=== PATIENT | female | born 1940 | race Caucasian/White ===

== ENCOUNTER 2020-10-20 11:49 | Inpatient (IN) | payer MEDICARE ==
[~2020-10-20] VITALS: Ht 162.6 cm; Wt 60.9 kg
[~2020-10-20 11:49] MED LIST: CELEXA20 MG PO; CLARITIN10 M2 PO; COZAAR50 MG PO; PLAQUENIL200 MG PO; PROTONIX40 M1 PO; RESTASIS1 DROP OD; SULFAZINE500 MG PO; XALATAN2.5 ML OU
--- NOTE | 2020-10-20 14:12 | EKG ---
[facility] [address] [facility] [place] [address] Signed Atrial fibrillation with rapid ventricular response Left axis deviation Left bundle branch block Abnormal ECG No previous ECGs available Confirmed by RAND OWENS MD ([id number]) on 10/20/2020 2:11:47 PM Electronically Signed By: RAND OWENS MD 10/20/20 1412 PATIENT NAME: TIMOTEO RODRIGUEZ Electrocardiogram DATE OF : 38 PHYSICIAN: RAND OWENS MD REPORT #: [id number] REPORT IS CONFIDENTIAL AND NOT TO BE RELEASED WITHOUT AUTHORIZATION
--- NOTE | 2020-10-20 18:30 | NUR ---
PT SITTING UP HIGH IN BED EATING DINNER AND TALKING. HAS WHAT APPEARS TO BE ASPIRATION OF A BITE OF FOOD, FOLLOWED BY COUGHING FOR ABOUT 5-10 MINUTES, PT ABLE TO EXPECTORATE SOME THICK SPUTUM. PT DOES NOT REQUIRE INCREASE AMOUT OF O2 DURING THIS TIME TO MAINTAIN SATS WELL. PT REMAINS ALERT AND ORIENTED, ABLE TO TALK AROUND COUGHS.
--- NOTE | 2020-10-20 18:36 | NUR ---
PT HAS TWO IV SITES, BOTH FUNCTIONAL. IN BILAT AC'S. FLUSHES AND FLUIDS INFUSE EASILY. PT DENIES PAIN AT EITHER SITE.
--- NOTE | 2020-10-20 19:21 | NUR ---
PT BROUGHT UP TO THE CCU FROM ER BY THIS RN AT ABOUT 1800. PT IS ALERT AND ORIENTED X4. DILTIAZEM DRIP IN PLACE AT 5 MG/HR. PT DENIES PAIN, CHEST PAIN, AND SOB AT THIS TIME. PT REPORTS SOME SLIGHT NAUSEA.
--- NOTE | 2020-10-20 19:45 | NUR ---
REPORT RECEIVED FROM DAY SHIFT RN. IN TO CHECK ON PT, DENIES NEEDS AT THIS TIME. CARDIZEM GTT INFUSING AT 5MG/HR. HR 70'S. PT RESTING IN BED WATCHING TV.
--- NOTE | 2020-10-20 20:49 | NUR ---
RT IN DOING NEB TX.
--- NOTE | 2020-10-20 21:15 | NUR ---
IN TO DO ASSESSMENT AND HS MEDS. PT DENIES PAIN/SOB OTHER NEEDS. SPO2 ON ROOM AIR 89%, UP TO 96% WITH OXYMASK. CARDIZEM DRIP INFUSING AT 5MG/HR. HR 70-80'S, UP TO 112 WHEN AMBULATING TO BR. VOIDED, NO DIZZINESS/LIGHTHEADEDNESS THEN BACK TO BED. ALERT AND ORIENTED X4, REMINDED TO USE CALL LIGHT AND NOT TO GET UP ON HER OWN. HELPED TO POSITION IN BED, PT READY TO TRY TO SLEEP FOR THE NIGHT.
--- NOTE | 2020-10-20 23:00 | NUR ---
PT CALLS FOR CELL PHONE TO BE PLUGGED IN. ASSESSMENT DONE, NO CHANGES, PT GOING BACK TO SLEEP.
--- NOTE | 2020-10-21 01:45 | NUR ---
PT CALLS FOR WARM BLANKET, STATES SHE HAS BEEN SLEEPING WELL. CARDIZEM DRIP TURNED OFF HR HAS BEEN IN THE 70'S FOR HOURS.
--- NOTE | 2020-10-21 03:51 | NUR ---
PT CALLS TO USE BR. UP WITH SBA TO BR USING CANE, HR REMAINS STEADY WHILE UP, PT DENIES FEELING DIZZY/LIGHTHEADED. BACK TO BED, ASSESSMENT DONE. PT DENIES FEELING SOB OR COUGHING. LUNGS CLEAR AND SOMEWHAT DIM IN BASES. SPO2 89% ON ROOM AIR WHILE LYING IN BED, OXYGEN APPLIED OXYMASK 2L AND SPO2 UP TO 95%. PT DENIES PAIN OR OTHER NEEDS, STATES SHE HAS BEEN SLEEPING WELL.
--- NOTE | 2020-10-21 10:26 | NUR ---
PATIENT ASSESSMENT COMPLETED, LABS DRAWN AND MORNING MEDS GIVEN. PT. AMBULATED WITH CANE TO THE BEDSIDE COMMODE ON FULL CHARGE BOOKKEEPER. TOLERATED WELL. PT. ON 3.5L ON OXYMASK. STATES SHE PREFERS MASK. IV SITES FLUSH WELL. PT. ALERT AND ORIENT. LEFT RESTING IN BED WITH CALL LIGHT IN REACH.
--- NOTE | 2020-10-21 11:35 | NUR ---
PATIENT ASSISTED WITH BEDBATH AND ORAL CARE. PT. MENTIONED SHE HAD A FALL TWO WEEKS AGO, BUT WAS NOT HURT. PT. PROVIDED WITH EDUCATION ABOUT AFIB AND SAFETY WITH AMBULATING. ASSESSMENT COMPLETED. TEMP. 97.8. LUNGS DIM IN BASES. PT. DENIES PAIN. HR IS 76 WHILE RESTING IN BED. ON 2L OF O2 NC. PT. LEFT RESTING IN BED WITH CALL LIGHT IN REACH.
--- NOTE | 2020-10-21 13:45 | NUR ---
PATIENT WAS CRYING AND ON THE PHONE WITH HER SON. PT. STATED THAT HER SON WANTED HER TO TELL DR. OWENS THAT SHE IS A DAILY DRINKER OF 3 BEERS PER DAY. HER LAST DRINK WAS ON FRIDAY. PT. WAS TREMULOUS IN ARMS. PT. ALSO STATED SHE TAKES EYE DROPS DAILY FOR GLAUCOMA AND FLONASE FOR NASAL DRIP. DR. OWENS NOTIFIED AND ORDERED BEER WITH HER DIET. PT. MAY HAVE FLONASE BROUGHT FROM HOME.
[2020-10-21] MEDS ORDERED: PANTOPRAZOLE SO40 MG PO (14:15)
--- NOTE | 2020-10-21 15:04 | NUR ---
REMDESIVIR STARTED. PT. AMBULATED WITH CANE TO THE BATHROOM. VOIDED 300ML CLEAR YELLOW URINE. PT. LEFT RESTING IN BED WITH CALL LIGHT IN REACH.
--- NOTE | 2020-10-21 16:00 | NUR ---
PATIENT ASSESSMENT COMPLETED. CRACKLES HEARD IN THE LLL. PT. ON 1L NC. PT. FINISHED BEER. DENIES PAIN AND STATES THAT SHE IS FEELING BETTER AND IS NOT SHAKY. PT. ORIENTED AND APPROPRIATE. IV SITES WNL. PT. LEFT RESTING IN BED WITH CALL LIGHT IN REACH.
--- NOTE | 2020-10-21 17:48 | NUR ---
PATIENT ASSISTED WITH REPOSITIONING TO THE SIDE OF THE BED. BROUGHT DINNER AT BEDSIDE. PT. SPEAKING WITH SON BY PHONE. LEFT EATING DINNER WITH CALL LIGHT IN REACH.
--- NOTE | 2020-10-21 20:30 | NUR ---
RT IN ROOM TO GIVE NEB TX.
--- NOTE | 2020-10-21 21:00 | NUR ---
PT CALLS WITH CONCERN THAT HER HR IS INCREASING AND SHE FEELS JITTERY. HS MEDS GIVEN, RESTING HR 100'S. CONT TO MONITOR.
--- NOTE | 2020-10-21 21:47 | NUR ---
AWAKE IN BED WATCHING RV, DENIES NEEDS. RESTING HR AT THIS TIME 118.
--- NOTE | 2020-10-21 23:20 | NUR ---
INFORMED DR OWENS OF PT'S HR 90'S TO 100'S. ORDER GIVEN FOR METOPROLOL.
--- NOTE | 2020-10-21 23:45 | NUR ---
IN TO GIVE PT ADDITIONAL 12.5MG PO METORPROLOL. ASSESSMENT DONE. PT STATES "IM GETTING PRETTY SORE FROM COUGHING". CURRENTLY ON 1L/NC WITH SPO2 95%. LUNGS SOUND CLEAR NO REQUESTS
--- NOTE | 2020-10-22 00:37 | NUR ---
PT CALLS TO USE BR, HR UP TO 115 WHILE UP. C/O 01/03 HEADACHE TYLENOL GIVEN.
--- NOTE | 2020-10-22 03:30 | NUR ---
PT HAD SPO2 86% WHILE SLEEPING, 1L OXYGEN PLACED AND SATS UP TO 92%. ASSESSMENT DONE.
--- NOTE | 2020-10-22 05:55 | NUR ---
IN TO DRAW LABS, PT DENIES NEEDS.
--- NOTE | 2020-10-22 06:59 | NUR ---
UP TO BR TO VOID 300ML, BACK TO BED. HR 90'S. OXYGEN 1L/NC SPO2 97%.
--- NOTE | 2020-10-22 08:20 | NUR ---
REPORT RECEIVED FROM NIGHT RN AND PATIENT CARE RESUMED. PT. DENIES PAIN AND STATED SHE DID NOT SLEEP WELL LAST NIGHT. PT. GIVEN MORNING MEDS, LAB DRAWN, AND PT. ASSESSED. LEFT IV SITE SLUGGISH TO FLUSH, BUT NO SIGNS OF INFILTRATION OR PAIN. CRACKLES HEARD BILAT. IN LUNG BASES AND WHEEZING IN THE RUL. PATIENT LEFT RESTING IN BED EATING BREAKFAST WITH CALL LIGHT IN REACH.
--- NOTE | 2020-10-22 09:20 | NUR ---
PATIENT ASSISTED TO THE BATHROOM TO VOID. AMBULATED INDEPENDENTLY WITH CANE AND TOLERATED WELL. UNMEASURED VOID. PT. GIVEN MAGNESIUM. PT. ASSISTED WITH REPOSITIONING AND LEFT RESTING IN BED WITH CALL LIGHT NEARBY.
--- NOTE | 2020-10-22 12:11 | NUR ---
PATIENT ASSESSMENT COMPLETED. PT. SLEEPING AND STATED SHE IS NOT HUNGRY FOR LUNCH AND JUST NEEDS TO REST. TEMP. 99.2 AND PT. DIAPHORETIC. REMOVED BLANKETS AND WILL CONTINUE TO MONITOR TEMP. CRACKLES HEARD IN LLL OF LUNGS. PT. ORIENTED. IV SITES WNL AND FLUSHED WELL. DISCUSSED PLAN TO CHANGE BEDDING AND BATH IN THE AFTERNOON. PT. LEFT RESTING IN BED WITH CALL LIGHT IN REACH.
--- NOTE | 2020-10-22 13:16 | NUR ---
PATIENT TRANSFERRED VIA SIGN HANGER TO [facility] ROOM 117 WITH ALL BELONGINGS. REPORT GIVEN TO BARTOLO RAMIREZ AND ANSWERED ALL QUESTIONS.
--- NOTE | 2020-10-22 18:47 | NUR ---
Lab draw done per orders. Pt in bed, table and call light within reach. O2 sat 96% on 1L NC.
--- NOTE | 2020-10-22 19:25 | NUR ---
RECEIVED REPORT FROM BARTOLO RAMIREZ. pt USING BSC. CALL LIGHT WITHIN REACH.
--- NOTE | 2020-10-22 19:52 | NUR ---
CALL LIGHT ON. pt REPORTED "I HAD A LITTLE ACCIDENT ON THE FLOOR AND WET MY UNDERWEAR." PROVIDED FRESH DEPENDS. NO OTHER REQUESTS AT THIS TIME. CALL LIGHT WITHIN REACH.
--- NOTE | 2020-10-22 20:47 | NUR ---
VERBAL REPORT RECEIVED FROM BARTOLO SHAFFER AT THIS TIME, THIS RN TO RESUME CARE FOR pt. pt AWAKE AND RESTING IN BED, 1LNC IN PLACE, O2 SAT IN MID TO UPPER 90'S, TELE#[address], HR WNL. NO NEEDS VERBALIZED BY pt AT THIS TIME. CALL LIGHT IN REACH.
--- NOTE | 2020-10-22 22:30 | NUR ---
ASSESSMENT COMPLETE, SCHEDULED MEDS GIVEN (SEE EMAR). VSS, 1LNC IN PLACE, 02 SAT WNL IN MID TO UPPER 90'S. TELE#[address], HR WNL. pt DENIES PAIN, NAUSEA, SOB. IV SITES X2 WNL, FLUSHES EASILY. pt ASSISTED WITH BED ROUTINE. NEW GOWN GIVEN, HAIR AND TEETH BRUSHED. pt NOW RESTING IN BED, DENIES FURTHER NEEDS, CALL LIGHT IN REACH. FRESH WATER PROVIDED ALONG WITH WARM BLANKET. CALL LIGHT IN REACH.
--- NOTE | 2020-10-22 23:48 | NUR ---
CALL LIGHT ON. pt REQUESTED ASSISTANCE WRAPPING HER IV. DRESSING INTACT. LIGHTLY WRAPPED FOR pt COMFORT. EMPTIED URINE. NO OTHER NEEDS AT THIS TIME. CALL LIGHT WITHIN REACH.
--- NOTE | 2020-10-23 01:04 | NUR ---
ROUNDING ON pt, RN DEENA IN ROOM ASSISTING WITH LIGHTS. NO ADDITIONAL NEEDS VERBALIZED, CALL LIGHT IN REACH.
--- NOTE | 2020-10-23 02:30 | NUR ---
IN ROOM TO REPLACE TELE BATTERY, ASSESSMENT COMPLETE. UNABLE TO AUSCULTATE HEART, LUNGS, OR BT D/T PAPR. pt AWOKE TO VOICE, DENIES NEEDS OR CONCERNS. pt DENIES PAIN AND NAUSEA. 1LNC IN PLACE, TELE#[address], HR WNL. CALL LIGHT IN REACH.
--- NOTE | 2020-10-23 06:40 | NUR ---
LAB DRAW COLLECTED AND SENT TO LAB. pt UP TO BSC AND BACK TO BED, STEADY ON FEET. 1LNC IN PLACE, NO DISTRESS NOTED. CALL LIGHT IN REACH AND FRESH WATER AT BEDSIDE.
--- NOTE | 2020-10-23 07:25 | NUR ---
PT RESTING SOUNDLY AT TIME OF SHIFT EXCHANGE. SATS 96%
--- NOTE | 2020-10-23 10:04 | NUR ---
PT HAD AN ECHO CARDIOGRAM EARLIER. SITTING UP IN BED EATING BREAKFAST AT THIS TIME, DENIES PAIN, SOB, OR OTHER DISCOMFORTS. PT ENCOURAGED TO USE I/S FREQUENTLY THIS SHIFT SHE VERBALIZES UNDERSTANDING. DENIES REQUESTS
--- NOTE | 2020-10-23 12:25 | NUR ---
DR DOHERTY IN TO SEE PT DISCUSSES PLAN GOING FORWARD. ALL QUESTIONS ANSWERED
--- NOTE | 2020-10-23 14:41 | NUR ---
PT TRIED ON RA SATS ARE 95-97 THEN DIP WITH ANY ACTIVITY OR TALKING. RETURNED TO 1 L 02. PT UP TO BSC THEN RETURNS TO BED NO INCREASED LABOR OF BREATHING OR C/O SOB. SITTING UPRIGHT IN BED AT THIS TIME DENIES NEED OF ANYTHING. FRESH H20 AT BEDSIDE PT TAKING SIPS ONLY. SHE IS COOPERATIVE AND ACTIVELY TRYING TO LIMIT FLUIDS VERBALIZING AND DEMONSTRATING UNDERSTANDING.
--- NOTE | 2020-10-23 15:00 | NUR ---
Attempted to call pt for CM assessment as she is + for covid. Unable to contact by phone, will try tomorrow.
--- NOTE | 2020-10-23 18:19 | NUR ---
PT SITTING UP IN HER BED EATING EVENING MEAL WATCHING TV. SATS MID 90'S. SHE REMOVES HER 02 EARLIER TO TOILET SATS DIP TO 80'S. PT ENCOURAGED TO CALL FOR ASSIST IF NEEDED BUT NOT TO TAKE 02 OFF, UNDERSTANDING VERBALIZED. 02 REPLACED SHE RECOVERS QUICKLY DENIES SOB OR DISCOMFORTS
--- NOTE | 2020-10-23 19:10 | NUR ---
REPORT RECEIVED FROM JOSE MCFARLAND. PT SPO2 AT 96% CURRENTLY VIA TELE #6. CALL LIGHT IN REACH, NO APPARENT NEEDS AT THIS TIME, WILL CONTINUE PLAN OF CARE.
--- NOTE | 2020-10-23 21:06 | NUR ---
SCHEDULED MEDICATIONS ADMINISTERED, ASSESSMENT, VITALS AND I/O'S COMPLETE. PT ON 2L NC, SPO2 95%. PT REPORTS NO SOB, NO DISCOMFORT AT THIS TIME. LUNGS COARSE IN BASES, OTHERWISE CLEAR, HRR, BOWEL TONES ACTIVE. PT INDEPENDENT IN THE ROOM, ABLE TO USE BSC, SALINE LOCKED. PT STATES N/T IN BLE BASELINE. WATER PROVIDED W REGARD TO FLUID RESTRICTION. CALL LIGHT IN REACH, NO OTHER NEEDS AT THIS TIME.
--- NOTE | 2020-10-23 23:05 | NUR ---
CALL LIGHT ANSWERED, PT ASSISTED WITH LIGHTS AND EMPTYING OF BSC. ON 2L NC, SPO2 96%, NO OTHER REQUESTS AT THIS TIME. WILL CONTINUE TO MONITOR
--- NOTE | 2020-10-24 01:12 | NUR ---
PT RESTING IN BED WITH EYES CLOSED. RR EVEN AND UNLABORED, ON 1L O2, SPO2 AT 96%. CALL LIGHT IN REACH, NO APPARENT NEEDS OR DISTRESS. WILL CONTINUE TO MONITOR.
--- NOTE | 2020-10-24 03:45 | NUR ---
IN ROOM TO CHANGE TELE BATTERY. PT REPORTS NO NEEDS AT THIS TIME, ON 1L O2, AT 92% SPO2. CALL LIGHT IN REACH, WILL CONTINUE TO MONITOR
--- NOTE | 2020-10-24 06:04 | NUR ---
IN pt ROOM FOR LAB DRAW. pt TOLERATED WELL. CALL LIGHT AND PERSONAL SUPPLIES IN REACH.
--- NOTE | 2020-10-24 06:50 | NUR ---
LABS DRAWN, PRN TYLENOL ADMINISTERED, ASSESSMENT COMPLETE. VITALS AND I/O'S COMPLETE, PT RESTING WITH NO NEEDS AT THIS TIME. WATER REFRESHED. CALL LIGHT IN REACH, WILL CONTINUE TO MONITOR.
--- NOTE | 2020-10-24 07:23 | NUR ---
RECEIVED REPORT FROM LUIS MCFARLAND. PT APPEARS TO RESTING COMFORTABLY WITH RESITRATIONS NOTED.
--- NOTE | 2020-10-24 13:32 | NUR ---
Spoke with Luz by phone. She states she is doing well, up in her room. Plans on dc to home when finished with Remdesivir and cleared by . Pt lives alone, but her children live in the same area at [place]. They see or check on her daily. She does state they have been sick and are getting tested for covid, she believe they infected her. She states she has several friends and neighbors who can assist her.
--- NOTE | 2020-10-24 17:30 | NUR ---
PTS RHYTHEM REMAINS IN A-FIB WITH NOW INCREASED FREQUENCY OF AXIS CHANGES AND WIDENED QRS COMPLEXES OF A BUNDLE BRANCH BLOCK. PTS RN, RUBEN, CALLED AND UPDATED AND STATES SHE WILL CHECK ON PT.
--- NOTE | 2020-10-24 19:01 | NUR ---
PATIENT UP TO BSC AND BACK TO BED, IND. JIMY CARE DONE. CALL LIGHT IN REACH. NO FURTHER NEEDS AT THIS TIME.
--- NOTE | 2020-10-24 19:20 | NUR ---
RECEIVED REPORT FROM BARTOLO MIRANDA. pt RESTING IN BED. CALL LIGHT WITHIN REACH.
--- NOTE | 2020-10-24 21:00 | NUR ---
IN TO DO ASSESSMENT AND MEDICATIONS. pt UP TO VOID, SMALL BM NOTED. pt INDEPENDENT IN ROOM. PM CARES DONE. pt ASKED QUESTIONS ABOUT FLUID RESTRICTION, PROVIDED VERBAL EDUCATION AND HANDOUTS. DISCUSSED NEEDS. pt WOULD LIKE HER DAUGHTER TO BE INVOLVED IN CARE CONFERENCE WILL DISCUSS WITH CHARGE NURSE. ASSESSMENT DONE. MEDICATIONS GIVEN (SEE MAR). pt RESTING IN BED. CALL LIGHT WITHIN REACH.
--- NOTE | 2020-10-24 23:23 | NUR ---
CALL LIGHT ON. pt REQUESTED ASSISTANCE WITH LIGHTS. RESTING IN BED. NO FURTHER REQUESTS AT THIS TIME. CALL LIGHT WITHIN REACH.
--- NOTE | 2020-10-25 01:40 | NUR ---
ROUNDED ON pt. RESTING IN BED WITH EYES CLOSED, O2 SAT 91% ON ROOM AIR. CALL LIGHT WITHIN REACH.
--- NOTE | 2020-10-25 03:30 | NUR ---
ROUNDED ON pt. RESTING IN BED WITH EYES CLOSED, RESPIRATIONS REGULAR. CALL LIGHT WLITHIN REACH.
--- NOTE | 2020-10-25 05:26 | NUR ---
IN TO DO ASSESSMENT. pt REPORTED "I SLEPT WELL, I FEEL GOOD THIS MORNING" NOTED HACKING COUGH. ASSESSMENT DONE. VITALS AND I&O RECORDED. TOOK BREAKFAST ORDER. PROVIDED WARM BLANKET. NO FURTHER REQUESTS AT THIS TIME. CALL LIGHT WITHIN REACH.
--- NOTE | 2020-10-25 07:34 | NUR ---
THIS RN RECIEVED REPORT FROM DEENA MCFARLAND. PT APPEARS TO BE RESTING AND PER THE TELE MONOITOR BOARD PT IS SATING IN THE MID 90'S ON ROOM AIR WITH A GOOD WAVE FORM.
--- NOTE | 2020-10-25 09:46 | NUR ---
THIS RN IN PTS ROOM AT THIS TIME. PT STATES THAT SHE IS FEELING GOOD TODAY. PT ALERT AND ORIENTED. PT STATES REMEMBERING EDUCATION THAT DEENA RN HAD PROVIDED PT. THIS RN REINFORCED EDUCATION. PTS ONLY CONCERN THIS AM IS THAT SHE DOESN'T KNOW WHEN THE HORSENESS IN HER VOICE WILL GO AWAY.
--- NOTE | 2020-10-25 10:15 | NUR ---
THIS RN CONTINUED IN PTS ROOM AND DISCUSSED WITH PT ABOUT EDUCATION IN REGARDS TO HEART FAILURE AND AFIB. PT STATED UNDERSTANDING. THIS RN ALSO DISCUSSED WITH PT ABOUT WHEN SHE DRINKS HER BEERS AT HOME THAT THE FLUID ACCOUNT TOWARDS HER FLUID RESTIRION AND TALKED THROUGH PTS PLANS OF HOS SHE CAN STILL DRINK A BEER AND WATER WHILE MAINTAINING WITHIN HER FLUID RESTRICTION
--- NOTE | 2020-10-25 13:00 | NUR ---
Spoke with Luz, she plans on dc today. States she is need of clothing and her keys. Spoke with beeswax bleacher and trace to pts room, stock supervisor will get pt scrub pants to wear home. Pt has her robe.
--- NOTE | 2020-10-25 13:37 | NUR ---
Certified Heart Failure Nurse Notes: Diagnosis: Atrial fibrillation and CHF. Covid. Automation Technician : not at this time PCP: [facility] Echocardiogram : EF 40% with severe dilated RV BNP on admit. Oct 24 BNP 788 Cr 0.46 Admit Weight 134lb Social support system: Reports daughter and son in law liver nearby. They can assist as needed but currently are on home quarantine. Weight monitoring: Scale present in home. Patient was not aware of weight gain monitoring and she agrees to begin Discussed how to weigh daily/ when to notify PCP Symptom management: Addressed monitoring and reporting changes in weight or symptoms utilizing Zones form. Transportation mode: Usually drives herself to appointments. Does not drive after dark. Diet: Usual meals include fresh vegetables and fruits. Recently has cut out beef and eats chicken, fish, and beans. Patient encouraged to follow low sodium diet. Given rationale and ideas for flavoring foods. Reports she does not eat a lot of processed foods. Does enjoy cheese and uses a lemon pepper salt mix. Portion control urged for these. She is a little unsure of this since at one time she was told her blood sodium was low- I will discuss with patient's RN Carolyn. Luz has been drinking a lot of water partially because of her diverticulitis history. Usual physical activity: States exercise use to be her norm but she has become sedentary as she aged. Discussed benefits of slow progress cardio exercise. Patient does not currently qualify for cardiac rehab. Medication routine: She reports taking a few medications twice a day at home without problems. She does not use 7 day pill assistant terminal manager. She agrees to try, I will leave a 7 day BID one for her at the nurses station. Advanced directive: Not discussed at this initial visit Today's visit was done via telephone with patient. 22 minutes of time with patient. Recommendations prior to discharge: Document ambulation oxygen saturations prior to discharge Absence of orthostatic hypotension. Discharge weight less than admit weight. Discharge BNP less than admit (as per [facility] Heart Failure DC Bundle) Barriers to self-care include: Knowledge deficit of new diagnosis HF. Alcohol intake. Covid restrictions. Follow-up plans: F/U call post discharge. Patient invited to come in later for complementary heart failure education. Will need further education on label reading. Needs counseled on minimizing/avoiding use of NSAIDs Teaching materials given today: [facility] contact information, Low Sodium Shopping list. 7 day pill box.
[2020-10-25] MEDS ORDERED: METOPROLOL SUCC50 MG PO (14:06)
[2020-10-25] MEDS ORDERED: ELIQUIS2.5 MG PO (14:07)
[2020-10-25] MEDS ORDERED: BUMETANIDE0.5 MG PO (14:07)
[2020-10-25] MEDS ORDERED: POTASSIUM CHLO20 ME1 PO (14:08)
[2020-10-25] MEDS ORDERED: COZAAR25 MG PO (14:09)
--- NOTE | 2020-10-25 14:10 | NUR ---
Notified by RN, pt is in need of transport home. Called taxi and notified pt is covid +. They request I call [facility] transport [phone]. Called and scheduled ride home for 3:15. They will warehouse order picker at [facility]. Carolyn Mendoza updated.
== END 2020-10-25 15:25 | disposition home or self-care (01) | DRG 177 ==
LOC: ED 11:49 → CCU 15:02 → MS 10-22 14:00
PROVIDERS: ADMIT Internal Medicine; ATTEND Internal Medicine
PROC: XW033E5 Introduction of Remdesivir Anti-infective into Peripheral Vein, Percutaneous Approach, New Technology Group 5 (ICD-10-PCS; principal; 2020-10-20)
DX: U07.1 COVID-19 (principal); J96.01 Acute respiratory failure with hypoxia; J12.89 Other viral pneumonia; I50.31 Acute diastolic (congestive) heart failure; J44.0 Chronic obstructive pulmonary disease with (acute) lower respiratory infection; J44.1 Chronic obstructive pulmonary disease with (acute) exacerbation; C85.10 Unspecified B-cell lymphoma, unspecified site; E87.1 Hypo-osmolality and hyponatremia; I48.91 Unspecified atrial fibrillation; I11.0 Hypertensive heart disease with heart failure; M06.9 Rheumatoid arthritis, unspecified; F41.9 Anxiety disorder, unspecified; Z79.899 Other long term (current) drug therapy; Z87.11 Personal history of peptic ulcer disease; Z88.0 Allergy status to penicillin; Z88.5 Allergy status to narcotic agent
CPT/HCPCS: 71045; 71260; 80048; 80053; 82803; 83735; 83880; 84484; 85025; 93005; 93010; 93306; 94640; 94667; 94668; 94760; 96374; 96375; 96376; 97162; 99285-25; C9803; J1100; J1650; J1940; J2405; J2930; J3475; J7050; J8540; Q9967; U0003

== ENCOUNTER 2021-07-18 18:37 | Emergency (ER) | payer MEDICARE ==
[~2021-07-18] VITALS: Ht 162.6 cm; Wt 58.5 kg
[~2021-07-18 18:37] MED LIST changes: +BUMETANIDE0.5 MG PO; +COZAAR25 MG PO; +ELIQUIS2.5 MG PO; +METOPROLOL SUCC50 MG PO; +PANTOPRAZOLE SO40 MG PO; +POTASSIUM CHLO20 ME1 PO
[2021-07-18] MEDS ORDERED: JANTOVEN2.5 MG (19:17)
== END 2021-07-18 21:56 | disposition home or self-care (01) ==
LOC: ED 18:37
DX: S90.211A Contusion of right great toe with damage to nail, initial encounter (principal); X58.XXXA Exposure to other specified factors, initial encounter; J44.9 Chronic obstructive pulmonary disease, unspecified; J18.9 Pneumonia, unspecified organism; Z87.891 Personal history of nicotine dependence; Z88.0 Allergy status to penicillin; Z88.5 Allergy status to narcotic agent; Z88.2 Allergy status to sulfonamides; Z79.899 Other long term (current) drug therapy; Z79.01 Long term (current) use of anticoagulants
CPT/HCPCS: 73660; 99283

== ENCOUNTER 2021-08-28 12:33 | Emergency (ER) | payer MEDICARE ==
[~2021-08-28] VITALS: Ht 162.6 cm; Wt 56.7 kg
[~2021-08-28 12:33] MED LIST changes: +JANTOVEN2.5 MG PO; +NYSTATIN100000 UN1 PO; +TRUXIMA10 MG/1 ML IV
== END 2021-08-28 18:12 | disposition home or self-care (01) ==
LOC: ED 12:33
DX: K91.840 Postprocedural hemorrhage of a digestive system organ or structure following a digestive system procedure (principal); J44.9 Chronic obstructive pulmonary disease, unspecified; Z87.891 Personal history of nicotine dependence; Z88.0 Allergy status to penicillin; Z88.5 Allergy status to narcotic agent; Z88.8 Allergy status to other drugs, medicaments and biological substances; Z79.899 Other long term (current) drug therapy; Z79.01 Long term (current) use of anticoagulants
CPT/HCPCS: 85025; 85610; 99283

== ENCOUNTER 2021-11-13 09:35 | Emergency (ER) | payer MEDICARE ==
[~2021-11-13] VITALS: Ht 162.6 cm; Wt 59.9 kg
[~2021-11-13 09:35] MED LIST changes: +CITRACAL-VIT D1 EAC2 PO; +OSTERA TABLET1 EACH PO
[2021-11-13] MEDS ORDERED: K-TAB10 MEQ PO (14:53)
[2021-11-13] MEDS ORDERED: LASIX20 MG PO (14:53)
[2021-11-13] MEDS ORDERED: HYDROCHLOROTH12.5 MG PO (15:31)
--- NOTE | 2021-11-15 11:26 | EKG ---
[facility] [address] [facility] [place] [address] Signed Atrial fibrillation with premature ventricular or aberrantly conducted complexes Nonspecific intraventricular block Possible Anterolateral infarct , age undetermined Abnormal ECG When compared with ECG of 16-OCT-2021 08:55, Atrial fibrillation has replaced Atrial flutter Questionable change in QRS axis QT has lengthened Confirmed by RAND OWENS MD ([id number]) on 11/15/2021 11:25:58 AM Electronically Signed By: RAND OWENS MD 11/15/21 1126 PATIENT NAME: TIMOTEO RODRIGUEZ Electrocardiogram DATE OF : 38 PHYSICIAN: RAND OWENS MD REPORT #: [id number] REPORT IS CONFIDENTIAL AND NOT TO BE RELEASED WITHOUT AUTHORIZATION
== END 2021-11-13 15:55 | disposition home or self-care (01) ==
LOC: ED 09:35
DX: U07.1 COVID-19 (principal); J90 Pleural effusion, not elsewhere classified; J44.9 Chronic obstructive pulmonary disease, unspecified; Z87.891 Personal history of nicotine dependence; Z88.0 Allergy status to penicillin; Z88.5 Allergy status to narcotic agent; Z88.8 Allergy status to other drugs, medicaments and biological substances; Z79.899 Other long term (current) drug therapy; Z79.01 Long term (current) use of anticoagulants
CPT/HCPCS: 71045; 80053; 83880; 85025; 86850; 86900; 86901; 93005; 93010; 99284-25; C9803; U0003

== ENCOUNTER 2021-12-17 14:11 | Emergency (ER) | payer MEDICARE ==
[~2021-12-17] VITALS: Ht 162.6 cm; Wt 57.6 kg
[~2021-12-17 14:11] MED LIST changes: +HYDROCHLOROTH12.5 MG PO; +K-TAB10 MEQ PO; +LASIX20 MG PO
--- OUTSIDE RECORDS SUMMARY | 2021-12-17 14:18 | XMS ---
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 Caren has no Care Guidelines for this patient. Tori VISIT COUNT (12 MO.) 4 CARMEL Sandoval TOTAL 4 NOTE: Visits indicate total known visits. ED/C VISIT TRACKING (12 MO.) 12/17/2021 14:12 [facility] [place] TYPE: Emergency COMPLAINT: - FALL, HEAD WOUND 11/13/2021 09:37 [facility] [place] TYPE: Emergency COMPLAINT: - COUGH, SWELLING FEET, DIARRHEA DIAGNOSES: - Allergy status to other drugs, medicaments and biological substances - Other fecal abnormalities - Other detention (current) drug therapy - Pleural effusion, not elsewhere classified - Chronic obstructive pulmonary disease, unspecified - Personal history of nicotine dependence - Allergy status to narcotic agent - Allergy status to penicillin - account service representative (current) use of anticoagulants - COVID-19 08/28/2021 12:34 [facility] [place] TYPE: Emergency COMPLAINT: - DENTAL ISSUE DIAGNOSES: - Postprocedural hemorrhage of a digestive system organ or structure following a digestive system procedure - Other detention (current) drug therapy - Personal history of nicotine dependence - Allergy status to other drugs, medicaments and biological substances - long-term (current) use of anticoagulants - Other specified disorders of teeth and supporting structures - Allergy status to narcotic agent - Allergy status to penicillin - Chronic obstructive pulmonary disease, unspecified 07/18/2021 18:38 [facility] [place] TYPE: Emergency COMPLAINT: - TOE PAIN/NON INJURY DIAGNOSES: - Contusion of right great toe with damage to nail, initial encounter - Chronic obstructive pulmonary disease, unspecified - long-term (current) use of anticoagulants - Allergy status to sulfonamides - Allergy status to narcotic agent - Personal history of nicotine dependence - Other detention (current) drug therapy - Pneumonia, unspecified organism - Allergy status to penicillin - Exposure to other specified factors, initial encounter - Pain in right toe(s) INPATIENT VISIT TRACKING (12 MO.) No inpatient visits to display in this time frame [email or web address]
== END 2021-12-17 21:07 | disposition home or self-care (01) ==
LOC: ED 14:11
DX: S61.217A Laceration without foreign body of left little finger without damage to nail, initial encounter (principal); S01.81XA Laceration without foreign body of other part of head, initial encounter; R91.8 Other nonspecific abnormal finding of lung field; W01.198A Fall on same level from slipping, tripping and stumbling with subsequent striking against other object, initial encounter; I48.91 Unspecified atrial fibrillation; M06.9 Rheumatoid arthritis, unspecified; J44.9 Chronic obstructive pulmonary disease, unspecified; Z87.891 Personal history of nicotine dependence; Z88.0 Allergy status to penicillin; Z88.5 Allergy status to narcotic agent; Z88.8 Allergy status to other drugs, medicaments and biological substances; Z79.899 Other long term (current) drug therapy
CPT/HCPCS: 12011; 36415; 70450; 72125; 72170; 73560; 80053; 80503; 85025; 99284-25

== ENCOUNTER 2022-01-12 19:18 | Emergency (ER) | payer OTHER, MEDICARE ==
[~2022-01-12] VITALS: Ht 162.6 cm; Wt 64.9 kg
--- OUTSIDE RECORDS SUMMARY | 2022-01-12 19:24 | XMS ---
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 Caren has no Care Guidelines for this patient. [facility] NOTE: Visits indicate total known visits. ED/C VISIT TRACKING (12 MO.) [facility] 19[facility] [place] [facility]: Emergency COMPLAINT: - HEAD INJURY,LEGS ARE OOZING,BOTH FEET INJURED 12/17/2021 14:12 [facility] TYPE: Emergency COMPLAINT: - FALL, HEAD WOUND DIAGNOSES: - Fall on same level from slipping, tripping and stumbling with subsequent striking against other object, initial encounter - Laceration without foreign body of left little finger without damage to nail, initial encounter - Allergy status to other drugs, medicaments and biological substances - Chronic obstructive pulmonary disease, unspecified - Laceration without foreign body of other part of head, initial encounter - Allergy status to narcotic agent - Other nonspecific abnormal finding of lung field - Rheumatoid arthritis, unspecified - Unspecified atrial fibrillation - Allergy status to penicillin - Personal history of nicotine dependence - Other penitentiary (current) drug therapy 11/13/2021 09:37 [facility] [place] TYPE: Emergency COMPLAINT: - COUGH, SWELLING FEET, DIARRHEA DIAGNOSES: - Allergy status to other drugs, medicaments and biological substances - Other fecal abnormalities - Other termite treater (current) drug therapy - Pleural effusion, not elsewhere classified - Chronic obstructive pulmonary disease, unspecified - Personal history of nicotine dependence - Allergy status to narcotic agent - Allergy status to penicillin - residential (current) use of anticoagulants - COVID-19 08/28/2021 12:34 [facility] [place] TYPE: Emergency COMPLAINT: - DENTAL ISSUE DIAGNOSES: - Postprocedural hemorrhage of a digestive system organ or structure following a digestive system procedure - Other termite treater (current) drug therapy - Personal history of nicotine dependence - Allergy status to other drugs, medicaments and biological substances - intermediate school teacher (current) use of anticoagulants - Other specified disorders of teeth and supporting structures - Allergy status to narcotic agent - Allergy status to penicillin - Chronic obstructive pulmonary disease, unspecified 07/18/2021 18:38 [facility] TYPE: Emergency COMPLAINT: - TOE PAIN/NON INJURY DIAGNOSES: - Contusion of right great toe with damage to nail, initial encounter - Chronic obstructive pulmonary disease, unspecified - residential (current) use of anticoagulants - Allergy status to sulfonamides - Allergy status to narcotic agent - Personal history of nicotine dependence - Other termite treater (current) drug therapy - Pneumonia, unspecified organism - Allergy status to penicillin - Exposure to other specified factors, initial encounter - Pain in right toe(s) INPATIENT VISIT TRACKING (12 MO.) No inpatient visits to display in this time frame [email or web address]
[2022-01-12] MEDS ORDERED: BACITRACIN3.5 GM OD (22:03)
== END 2022-01-12 22:40 | disposition home or self-care (01) ==
LOC: ED 19:18
DX: S80.12XA Contusion of left lower leg, initial encounter (principal); S80.11XA Contusion of right lower leg, initial encounter; S00.81XA Abrasion of other part of head, initial encounter; I50.9 Heart failure, unspecified; I83.009 Varicose veins of unspecified lower extremity with ulcer of unspecified site; J44.9 Chronic obstructive pulmonary disease, unspecified; Z87.891 Personal history of nicotine dependence; Z88.0 Allergy status to penicillin; Z88.5 Allergy status to narcotic agent; Z88.8 Allergy status to other drugs, medicaments and biological substances; Z79.899 Other long term (current) drug therapy; W19.XXXA Unspecified fall, initial encounter
CPT/HCPCS: 36415; 70450; 80053; 80503; 83880; 85025; 93925; 99284-25

== ENCOUNTER 2024-08-06 09:47 | Emergency (ER) | payer MEDICARE ==
[~2024-08-06] VITALS: Ht 162.6 cm; Wt 55.3 kg
[~2024-08-06 09:47] MED LIST changes: +BACITRACIN3.5 GM OD
[2024-08-06 12:21] VITALS: BP 131/79
== END 2024-08-06 12:20 | disposition home or self-care (01) ==
LOC: ED 09:47
DX: H57.89 Other specified disorders of eye and adnexa (principal); J44.9 Chronic obstructive pulmonary disease, unspecified; Z87.891 Personal history of nicotine dependence; Z88.0 Allergy status to penicillin; Z88.5 Allergy status to narcotic agent; Z88.8 Allergy status to other drugs, medicaments and biological substances; Z79.899 Other long term (current) drug therapy; Z91.09 Other allergy status, other than to drugs and biological substances
CPT/HCPCS: 99282

== ENCOUNTER 2024-10-03 14:26 | Emergency (ER) | payer MEDICARE ==
[~2024-10-03] VITALS: Ht 162.6 cm; Wt 51.7 kg
[2024-10-03] MEDS ORDERED: PANTOPRAZOLE SODIUM 40 MG/10 ML VIAL IV ONE (14:45)
[2024-10-03] MEDS ORDERED: SODIUM CHLORIDE 0.9% 1,000 ML IV ONE (14:45)
[2024-10-03 14:53] LABS: BASOPHILS 0.4 % (0-2); EOSINOPHILS 0.4 % (0-6); HEMOGLOBIN 14.4 g/dL (12.0-18.0); LYMPHOCYTES 16.3 % (24-44); MCH 30.7 (27-36); MCHC 33.6 g/dl (30-36); MCV 91.5 fl (81-99); NEUTROPHILS 72.9 % (39-80); PLATELET COUNT 244 K/uL (140-440); RDW 13.5 (10.5-15.0)
[2024-10-03 15:03] LABS: PARTIAL THROMBOPLASTIN TIME 28.8 Sec (22.9-41.3)
[2024-10-03 15:04] LABS: INR 1.16 (0.80-1.30)
[2024-10-03 15:08] LABS: ALBUMIN 3.9 g/dL (3.4-5.0); ALBUMIN/GLOBULIN RATIO 0.87 (1.1-2.4); ANION GAP 9.9 (7-21); BILIRUBIN, TOTAL 0.5 ng/dL (0.2-1.0); BUN/CREATININE RATIO 31.95 (6.0-28.6); CALCIUM 9.4 mg/dL (8.5-10.1); CREATININE, SERUM 0.97 mg/dL (0.55-1.02); POTASSIUM 2.9 mmol/L (3.5-5.1); PROTEIN, TOTAL 8.4 g/dL (6.4-8.2)
[2024-10-03 15:29] LABS: ABO O; RH POSITIVE
[2024-10-03 15:30] LABS: ANTIBODY SCREEN NEGATIVE
[2024-10-03 16:06] LABS: BILIRUBIN, URINE NEGATIVE (negative); BLOOD/HGB, URINE NEGATIVE (Negative); KETONE, URINE NEGATIVE (Negative); LEUK ESTERASE, URINE MODERATE (negative); NITRITE, URINE POSITIVE (negative); PH, URINE 6.5 (5-7)
[2024-10-03 16:11] LABS: BACTERIA, URINE 2+ /hpf (negative); CASTS, URINE NONE SEEN \\lpf; COLLECTION TYPE, URINE CLEAN CATCH; CRYSTALS, URINE NONE SEEN (0-1+); RED BLOOD CELLS, URINE 0-1 /hpf (0-5); REFLEX CULTURE, URINE No (No); WHITE BLOOD CELLS, URINE 21-40 /HPF (0-5)
[2024-10-03] MEDS ORDERED: CEFTRIAXONE/SODIUM CHLORIDE 2 GM/100 ML PIGGYBACK IV ONE (17:00)
[2024-10-03] MEDS ORDERED: POTASSIUM CHLORIDE 20 MEQ/15 ML CUP PO ONE (17:00)
[2024-10-03] MEDS ORDERED: POTASSIUM CHLORIDE 10 MEQ/100 ML BAG IV ONE (17:00)
[2024-10-03] MEDS ORDERED: SODIUM CHLORIDE 0.9% 1,000 ML IV PRN (17:15)
[2024-10-03] MEDS ORDERED: BRUKINSA80 MG PO (17:22)
[2024-10-03] MEDS ORDERED: ARFORMOTER15 MCG/2 M INH (17:22)
[2024-10-03] MEDS ORDERED: FLONASE ALLERG9.9 ML NAS (17:24)
[2024-10-03] MEDS ORDERED: FUROSEMIDE40 MG PO (17:25)
[2024-10-03] MEDS ORDERED: EYE ITCH RELIEF5 ML OPTH (17:26)
[2024-10-03] MEDS ORDERED: LOSARTAN POTASS50 MG PO (17:26)
[2024-10-03] MEDS ORDERED: LORATADINE10 MG PO (17:27)
[2024-10-03] MEDS ORDERED: OMEPRAZOLE20 MG PO (17:28)
[2024-10-03] MEDS ORDERED: ONDANSETRON ODT8 MG PO (17:29)
[2024-10-03] MEDS ORDERED: SPIRONOLACTONE25 MG PO (17:29)
[2024-10-03] MEDS ORDERED: SUCRALFATE1 GM PO (17:30)
[2024-10-03] MEDS ORDERED: 8 HOUR PAIN RE650 MG PO (17:31)
[2024-10-03] MEDS ORDERED: FLOMAX0.4 MG PO (17:31)
[2024-10-03] MEDS ORDERED: CEFDINIR300 MG PO (18:34)
[2024-10-03 18:53] VITALS: BP 120/75
== END 2024-10-03 18:55 | disposition home or self-care (01) ==
LOC: ED 14:26
PROVIDERS: Emergency Medicine
DX: R19.5 Other fecal abnormalities (principal); E86.0 Dehydration; E87.6 Hypokalemia; N39.0 Urinary tract infection, site not specified; J44.9 Chronic obstructive pulmonary disease, unspecified; Z87.891 Personal history of nicotine dependence; Z88.0 Allergy status to penicillin; Z88.5 Allergy status to narcotic agent; Z88.8 Allergy status to other drugs, medicaments and biological substances; Z79.899 Other long term (current) drug therapy
CPT/HCPCS: 36415; 74177; 80053; 81001; 83605; 83690; 85025; 85060; 85610; 85730; 86850; 86900; 86901; 96361; 96368; 96375; 99284-25; A9270; J0696; J2470; J3480; J7030; Q9967

== ENCOUNTER 2025-02-09 11:44 | Emergency (ER) | payer MEDICARE ==
[~2025-02-09] VITALS: Ht 162.6 cm; Wt 55.0 kg
[~2025-02-09 11:44] MED LIST changes: +8 HOUR PAIN RE650 MG PO; +ARFORMOTER15 MCG/2 M INH; +BRUKINSA80 MG PO; +CEFDINIR300 MG PO; +EYE ITCH RELIEF5 ML OPTH; +FLOMAX0.4 MG PO; +FLONASE ALLERG9.9 ML NAS; +FUROSEMIDE40 MG PO; +KETOCONAZOLE120 ML TOP; +LORATADINE10 MG PO; +LOSARTAN POTASS50 MG PO; +OMEPRAZOLE20 MG PO; +ONDANSETRON ODT8 MG PO; +SPIRONOLACTONE25 MG PO; +SUCRALFATE1 GM PO
[2025-02-09] MEDS ORDERED: PULMICORT1 MG/2 ML INH (14:53)
[2025-02-09] MEDS ORDERED: ALBUTEROL/IPRATROPIUM 3 ML NEB INH PRN (15:00)
[2025-02-09 15:08] LABS: BASOPHILS 0.8 % (0-2); HEMATOCRIT 33.8 % (35.0-50.0); HEMOGLOBIN 10.9 g/dL (12.0-18.0); LYMPHOCYTES 20.2 % (24-44); MCH 25.5 (27-36); MCHC 32.4 g/dl (30-36); MCV 78.5 fl (81-99); MONOCYTES 16.1 % (0-12); NEUTROPHILS 62.9 % (39-80); PLATELET COUNT 233 K/uL (140-440); RDW 18.5 (10.5-15.0)
[2025-02-09] MEDS ORDERED: levoFLOXacin 750 MG TAB PO ONE (15:30)
[2025-02-09 15:32] LABS: ALBUMIN 3.5 g/dL (3.4-5.0); ALBUMIN/GLOBULIN RATIO 0.8 (1.1-2.4); ANION GAP 8.9 (7-21); BILIRUBIN, TOTAL 0.4 mg/dL (0.2-1.0); BUN/CREATININE RATIO 31.11 (6.0-28.6); CALCIUM 9.2 mg/dL (8.5-10.1); CREATININE, SERUM 0.9 mg/dL (0.55-1.02); MAGNESIUM 1.9 mg/dL (1.8-2.4); POTASSIUM 3.9 mmol/L (3.5-5.1); PROTEIN, TOTAL 7.9 g/dL (6.4-8.2)
[2025-02-09] MEDS ORDERED: LEVOFLOXACIN750 MG PO (16:10)
[2025-02-09 16:15] VITALS: BP 119/80
--- NOTE | 2025-02-10 10:38 | EKG ---
[facility] [address] [facility] [place] [address] Signed Atrial fibrillation Right superior axis deviation Nonspecific intraventricular block Minimal voltage criteria for LVH, may be normal variant ( [facility] product ) Cannot rule out Anteroseptal infarct (cited on or before 13-NOV-2021) Abnormal ECG When compared with ECG of 13-NOV-2021 13:17, Questionable change in initial forces of Lateral leads Confirmed by Renzo Todd DO ([id number]) on 02/10/2025 10:38:39 AM Electronically Signed By: RENZO TODD DO 02/10/25 1038 PATIENT NAME: TIMOTEO RODRIGUEZ Electrocardiogram DATE OF : 38 PHYSICIAN: RENZO TODD DO REPORT #: [id number] REPORT IS CONFIDENTIAL AND NOT TO BE RELEASED WITHOUT AUTHORIZATION
== END 2025-02-09 16:20 | disposition home or self-care (01) ==
LOC: ED 11:44
PROVIDERS: Emergency Medicine
DX: J44.1 Chronic obstructive pulmonary disease with (acute) exacerbation (principal); Z87.891 Personal history of nicotine dependence; Z88.0 Allergy status to penicillin; Z88.5 Allergy status to narcotic agent
CPT/HCPCS: 36415; 71045; 80053; 83735; 83880; 84484; 85025; 93005; 93010; 94640; 99284-25